=== PATIENT | female | born 1935 | race Caucasian/White ===

== ENCOUNTER 2016-12-06 16:32 | Emergency (ER) | payer SELFPAY ==
[~2016-12-06] VITALS: Ht 157.5 cm; Wt 60.0 kg
[2016-12-06 16:38] VITALS: Ht 157.5 cm; Wt 60.0 kg
[2016-12-06] MEDS ORDERED: ACETAMINOPHEN 325 MG TAB PO ONE (17:00)
--- NOTE | 2016-12-06 17:14 | ERA ---
ER Documentation Chief Complaint Date/Time DATE: 12/06/16 TIME: 17:04 Chief Complaint GROUND LEVEL MECHANICAL FALL ONTO HEAD HPI This is an 81-year-old female with a history of right knee arthritis on Tylenol intermittently who is presenting with a headache after a mechanical fall. [place] when changing from floor to carpet. She fell forward landing on her knees and the top of her head hit the cart in front of her. The patient did not lose consciousness. She currently endorses a moderate headache to the superior aspect of her head without vision changes or photophobia or phonophobia or nausea or vomiting. The patient was ambulatory at the scene, but she complained of the headache. An ambulance was called who transferred her here for further evaluation. The patient does not endorse any other injury. She has no neck or back pain. She has no chest pain or trouble breathing. She has no abdominal pain. She is able to move all extremities with full range of motion and strength. Her sensation is intact. She is not incontinent of urine or stool. She has no saddle anesthesia. She has no focal deficits. She has no weakness or numbness or tingling to the face or extremities. ROS All systems reviewed and are negative except as per history of present illness. Medications Home Meds Unable to Obtain Active Prescriptions or Reported Meds Allergies Allergies: Coded Allergies: Penicillins (Unverified Allergy, Unknown, 12/06/16) PMhx/Soc History of Surgery: No Anesthesia Reaction: No Hx Neurological Disorder: No Hx Respiratory Disorders: No Hx Cardiac Disorders: No Hx Psychiatric Problems: No Hx Miscellaneous Medical Probl: Yes (ARTHRITIS ) Hx Alcohol Use: No Hx Substance Use: No Hx Tobacco Use: No Smoking Status: Never smoker FmHx Family History: No coronary disease, No diabetes Physical Exam Vitals Vital Signs Date Time Temp Pulse Resp B/P Pulse Ox O2 Delivery O2 Flow Rate FiO2 12/06/16 17:46 82 16 172/61 98 Room Air 12/06/16 16:48 85 16 169/77 100 Room Air 12/06/16 16:38 98.4 89 16 195/81 95 Physical Exam Const: No apparent distress, well-developed, well-nourished Head: Atraumatic, normocephalic, right scalp hematoma, no step-off or deformity, mild tenderness to palpation to the superior aspect of the skull. Eyes: Normal Conjunctiva ENT: Normal External Ears, Nose and Mouth. Neck: Full range of motion. ~ No meningismus. Resp: Clear to auscultation bilaterally Cardio: Regular rate and rhythm, no murmurs Abd: Soft, non tender, non distended. Normal bowel sounds Skin: No petechiae or rashes Back: No midline or flank tenderness Ext: No cyanosis, or edema, full range of motion to all joints, bilateral distal radial and DP pulses strong and symmetric, no pelvic tenderness or deformity Neur: Awake and alert, normal strength, normal sensation, normal coordination , ambulatory Psych: Normal Mood and Affect Results 24 hrs Current Medications Medications (Trade) Dose Ordered Sig/Davina Route PRN Reason Start Time Stop Time Status Last Admin Dose Admin Acetaminophen (Tylenol Tab) 650 mg ONCE ONCE PO 12/06/16 17:00 12/06/16 17:01 DC 12/06/16 17:05 Procedures/MDM MDM Patient's presentation warrants further investigation. The patient does endorse a headache and did hit her head against a car. A CT of the head will be performed to evaluate for any posttraumatic intracranial abnormality. The patient is not on any blood thinners, which is reassuring. If her CAT scan is negative, I do not feel that she would need to be admitted for a delayed head bleed. The patient will be given Tylenol for discomfort. She does not have any other evidence of traumatic injury and I do not believe a further workup is required at this time. IMAGING CT head FINDINGS: Parenchyma: No acute hemorrhage, large territorial infarction, or mass. Mild amount of periventricular and subcortical white matter hypodensity, a nonspecific finding often associated with chronic microangiopathy. Ventricles: Mild generalized volume with proportionate ex vacuo ventricular dilation. Extra-axial spaces: No herniation or midline shift. Paranasal sinuses: Tiny mucous retention cyst or polyp in the left sphenoid sinus. Mastoids and middle ears: Clear. Vessels: Mild calcified atherosclerotic arterial plaque. Bones: Mild osteopenia. Extracranial soft tissues: Right frontal scalp hematoma measures at 8 mm thick Additional comment: None. IMPRESSION: 1. Right frontal scalp hematoma without underlying fracture or acute intracranial hemorrhage. 2. Chronic senescent findings characterized by volume loss and white matter changes. Electronically viewed and signed by Mahogany Honeycutt Physician on 12/06/2016 18: 04 TREATMENT/DISPOSITION The patient was given Tylenol with improvement of her headache. The patient does have a scalp hematoma, but no other signs of acute posttraumatic abnormality. The patient needs to follow-up with her primary care physician in 1-2 days. She will be given precautions regarding the possibility of concussion , but she does not have findings consistent with a concussion at this time. She will be given precautions with which to return to the emergency department as well. Departure Diagnosis: Primary Impression: Fall Qualified Code: W19.XXXA - Fall, initial encounter Additional Impressions: Head trauma Qualified Code: S09.90XA - Traumatic injury of head, initial encounter Scalp hematoma Qualified Code: S00.03XA - Hematoma of scalp, initial encounter Condition: Stable RAMÍREZ MANZO MD Dec 06, 2016 17:14
--- NOTE | 2016-12-06 18:04 | RADRPT ---
PROCEDURE: CT head without intravenous contrast CLINICAL INDICATION: Fall. Head trauma. COMPARISON: None relevant listed. TECHNIQUE: Axial CT images from skull base to vertex with coronal and sagittal reformats. DOSE: The estimated administered radiation dose was CTDI vol = 45 mGy. DLP = 720 mGy-cm. One or mor e of the following dose reduction techniques were used: automated exposure control, adjustment of th e mA and/or kV according to patient size, or use of iterative reconstruction. FINDINGS: Parenchyma: No acute hemorrhage, large territorial infarction, or mass. Mild amount of periventricul ar and subcortical white matter hypodensity, a nonspecific finding often associated with chronic cali roangiopathy. Ventricles: Mild generalized volume with proportionate ex vacuo ventricular dilation. Extra-axial spaces: No herniation or midline shift. Paranasal sinuses: Tiny mucous retention cyst or polyp in the left sphenoid sinus. Mastoids and middle ears: Clear. Vessels: Mild calcified atherosclerotic arterial plaque. Bones: Mild osteopenia. Extracranial soft tissues: Right frontal scalp hematoma measures at 8 mm thick Additional comment: None. IMPRESSION: 1. Right frontal scalp hematoma without underlying fracture or acute intracranial hemorrhage. 2. Chronic senescent findings characterized by volume loss and white matter changes. RPTAT: AA Physician Rodolfo Date Time Electronically viewed and signed by Physician Rodolfo on 12/06/2016 18:04 /
[2016-12-06 19:06] VITALS: BP 172/61; PULSE 90; RESP 18
== END 2016-12-06 19:10 | disposition home or self-care (01) ==
LOC: E/R 16:32
DX: S00.03XA Contusion of scalp, initial encounter (principal); R40.2142 Coma scale, eyes open, spontaneous, at arrival to emergency department; R40.2252 Coma scale, best verbal response, oriented, at arrival to emergency department; R40.2362 Coma scale, best motor response, obeys commands, at arrival to emergency department; W01.0XXA Fall on same level from slipping, tripping and stumbling without subsequent striking against object, initial encounter; Y92.9 Unspecified place or not applicable
CPT/HCPCS: 70450